=== PATIENT | female | born 1990 | race Caucasian/White ===

== ENCOUNTER 2020-11-14 12:54 | Emergency (ER) | payer OTHER ==
[2020-11-14] MEDS ORDERED: SODIUM CHLORIDE 0.9% 1,000 ML IV STA ×2 (13:15)
[2020-11-14] MEDS ORDERED: KETOROLAC 30 MG/ML VIAL IVP STA (13:15)
[2020-11-14] MEDS ORDERED: LIDOCAINE-MPF 2% 10 ML in SODIUM CHLORIDE 0.9% 50 ML IV STA (13:15)
[2020-11-14 13:18] LABS: BILIRUBIN,URINE NEGATIVE (NEGATIVE); GLUCOSE, URINE (UA) NEGATIVE (NEGATIVE); KETONES,URINE (UA) NEGATIVE (NEGATIVE); LEUKOCYTE ESTERASE, URINE NEGATIVE (NEGATIVE); NITRITE,URINE NEGATIVE (NEGATIVE); OCCULT BLOOD,URINE NEGATIVE (NEGATIVE); PROTEIN,URINE NEGATIVE (NEGATIVE); UROBILINOGEN,URINE 0.2 (NORMAL) E.U./dL (NORMAL)
--- NOTE | 2020-11-14 13:19 | ED Physician Documentation ---
PD HPI ABD PAIN - Stated complaint Stated Complaint: BACK PX - Chief complaint Chief Complaint: Abd Pain - History obtained from History obtained from: Patient - History of Present Illness Timing - onset: Today Timing - duration: Days (1) Timing - details: Abrupt onset Pain level max: 10 Pain level now: 8 Quality: Aching, Pain Location: Other (R flank) Radiation: Right flank Improved by: Other (nothing) Worsened by: Other (nothing) Associated symptoms: No: Fever, Nausea, Vomiting, Hematemesis, Diarrhea, Constipation, Melena, Hematochezia, Dysuria - Additional information Additional information: 30-year-old female complains of right flank pain. Similar to prior history of kidney stones. Started this morning. Took Motrin without relief. Nothing makes it better or worse. She states that she has had some difficulty with urination, though no burning. No fevers. No nausea. No vomiting. Denies any possibility of . Review of Systems Constitutional: denies: Fever, Chills GI: denies: Vomiting, Diarrhea Musculoskeletal: denies: Neck pain, Back pain Neurologic: denies: Headache PD PAST MEDICAL HISTORY - Past Medical History Past Medical History: Yes : Kidney stones Psych: Depression, Anxiety - Present Medications Home Medications: Ambulatory Orders Medication Instructions Recorded Confirmed Escitalopram [Lexapro] 10 mg PO DAILY 11/14/20 11/14/20 Ibuprofen [Motrin] 800 mg PO Q8H PRN #30 tablet 11/14/20 Oxycodone HCl/Acetaminophen 1 - 2 each PO Q6H PRN #14 tablet 11/14/20 [Percocet 5-325 mg Tablet] Promethazine [Phenergan] 25 mg PO Q6H PRN #10 tab 11/14/20 buPROPion [Wellbutrin Xl] 150 mg PO BID 11/14/20 11/14/20 - Allergies Allergies/Adverse Reactions: Allergies Allergy/AdvReac Type Severity Reaction Status Date / Time Penicillins Allergy Unknown Verified 11/14/20 12:59 - Living Situation Living Situation: reports: With family Living Arrangement: reports: At home - Social History Does the pt have substance abuse?: No PD ED PE NORMAL - Vitals Vital signs reviewed: Yes - General General: Alert and oriented X 3, Well developed/nourished, Other (appears uncomfortable) - HEENT HEENT: Moist mucous membranes - Neck Neck: Supple, no meningeal sign - Cardiac Cardiac: RRR, Strong equal pulses - Respiratory Respiratory: No respiratory distress, Clear bilaterally - Abdomen Abdomen: Soft, Non tender, Non distended - Derm Derm: Warm and dry, No rash - Extremities Extremities: No edema - Neuro Neuro: Alert and oriented X 3 - Psych Psych: Normal mood, Normal affect Results - Vitals Vitals: Vital Signs - 24 hr 11/14/20 11/14/20 12:56 13:50 Temperature 36.0 C L Heart Rate 124 H 70 Respiratory 22 16 Rate Blood Pressure 164/100 H 120/89 H O2 Saturation 96 98 Oxygen O2 Source Room air - Labs Labs: Laboratory Tests 11/14/20 11/14/20 11/14/20 13:05 13:15 13:15 WBC 8.8 RBC 5.10 Hgb 14.0 Hct 43.4 MCV 85.1 MCH 27.5 MCHC 32.3 RDW 13.2 Plt Count 324 MPV 9.8 Neut # (Auto) 5.8 Lymph # (Auto) 2.4 [place] # (Auto) 0.5 Eos # (Auto) 0.1 Baso # (Auto) 0.0 Absolute Nucleated RBC 0.00 Nucleated RBC % 0.0 Sodium 138 Potassium 4.0 Chloride 105 Carbon Dioxide 25 Anion Gap 8.0 BUN 9 Creatinine 0.8 Estimated GFR (MDRD) 83 L Glucose 134 H Calcium 9.3 Total Bilirubin 0.7 AST 19 ALT 21 Alkaline Phosphatase 61 Total Protein 7.7 Albumin 4.4 Globulin 3.3 Albumin/Globulin Ratio 1.3 Lipase 22 Urine Color YELLOW Urine Clarity SL. CLOUDY Urine pH 6.0 Ur Specific [place] 1.020 Urine Protein NEGATIVE Urine Glucose (UA) NEGATIVE Urine Ketones NEGATIVE Urine Occult Blood NEGATIVE Urine Nitrite NEGATIVE Urine Bilirubin NEGATIVE Urine Urobilinogen 0.2 (NORMAL) Ur Leukocyte Esterase NEGATIVE Urine RBC 0-5 Urine WBC 0-3 Ur Squamous Epith Cells FEW Squamous Urine Bacteria Few Ur Microscopic Review INDICATED Urine Culture Comments NOT INDICATED Urine HCG, Qual NEGATIVE - Rads (name of study) CT abd/pelvis Radiology: Prelim report reviewed, EMP read contemporaneously, See rad report PD MEDICAL DECISION MAKING - ED course Complexity details: reviewed results, re-evaluated patient, considered differential, d/w patient ED course: 30-year-old female with a right-sided distal ureteral/UVJ stone. Pain well controlled with Toradol and IV lidocaine. Tolerating p.o. without difficulty. No evidence of infection. No fever. We will place her on pain medication for home and have her follow-up with her doctor for further care. Patient counseled regarding signs and symptoms for which I believe and urgent re-evaluation would be necessary. Patient with good understanding of and agreement to plan and is comfortable going home at this time This document was made in part using voice recognition software. While efforts are made to proofread this document, sound alike and grammatical errors may occur. . Suggestion of a 4 mm distal right ureteral/UVJ stone with mild to moderate right-sided hydronephrosis and hydroureter. No left-sided renal stone or hydronephrosis. Normal-appearing urinary bladder. 2. Normal appendix. No bowel obstruction. No abnormal bowel wall thickening. No free fluid or free air. Departure - Departure Disposition: Home, Self Care Clinical Impression: Ureteral calculus, right Condition: Good Instructions: ED Stone Renal W Colic Follow-Up: your,doctor in 1 week [Other] Prescriptions: Ibuprofen [Motrin] 800 mg PO Q8H PRN #30 tablet PRN Reason: PAIN &/OR FEVER Oxycodone HCl/Acetaminophen [Percocet 5-325 mg Tablet] 1 - 2 each PO Q6H PRN #14 tablet PRN Reason: pain Promethazine [Phenergan] 25 mg PO Q6H PRN #10 tab PRN Reason: Nausea / Vomiting Comments: Use the medication as prescribed. Return if you worsen. You do have a 4 mm right sided ureteral stone. This should pass on its own. Return for worsening pain, vomiting or fevers. Follow-up with your doctor for further care. Do not drink alcohol or drive while on narcotic pain medicine. Note that many narcotic pain relievers also contain tylenol/acetaminophen. Ple ase ensure that your total dose of acetaminophen from all sources does not exceed 3 grams (3000mg) per day. You may constipated on this medication, take a stool softener such as "Colace" twice a day while you are on it. Also recommend a vasn-ucl-cyoeolz laxative such as senna or MiraLAX any day that you do not have a bowel movement. If you received narcotic pain medication in the emergency department, do not drive or operate machinery for the next 24 hours.
[2020-11-14 13:21] LABS: CLARITY,URINE SL. CLOUDY (CLEAR); HCG UR QUAL NEGATIVE
[2020-11-14 13:35] LABS: BASOPHILS % (AUTO) 0.3 %; EOSINOPHILS # (AUTO) 0.1 10^3/uL (0.0-0.7); EOSINOPHILS % (AUTO) 1.4 %; LYMPHOCYTES # (AUTO) 2.4 10^3/uL (1.5-3.5); LYMPHOCYTES % (AUTO) 26.8 %; MEAN CORPUSCULAR HEMOGLOBIN 27.5 pg (27.0-31.0); MEAN CORPUSCULAR HGB CONC 32.3 g/dL (32.0-36.0); MEAN CORPUSCULAR VOLUME 85.1 fL (81.0-99.0); MEAN PLATELET VOLUME 9.8 fL (7.9-10.8); MONOCYTES # (AUTO) 0.5 10^3/uL (0.0-1.0); MONOCYTES % (AUTO) 5.1 %; NEUTROPHILS # (AUTO) 5.8 10^3/uL (1.5-6.6); NEUTROPHILS % (AUTO) 65.6 %; PLT - PLATELET COUNT 324 10^3/uL (130-450); RED CELL DISTRIBUTION WIDTH 13.2 % (12.0-15.0); WHITE BLOOD COUNT 8.8 x10^3/uL (4.8-10.8)
[2020-11-14 13:37] LABS: ALBUMIN 4.4 g/dL (3.2-5.5); ALBUMIN/GLOBULIN RATIO 1.3 (1.0-2.2); BILIRUBIN,TOTAL 0.7 mg/dL (0.2-1.0); CALCIUM 9.3 mg/dL (8.5-10.3); CREATININE 0.8 mg/dL (0.4-1.0); TOTAL PROTEIN 7.7 g/dL (6.7-8.2)
[2020-11-14 13:38] LABS: BACTERIA,URINE Few /HPF (None Seen); RBC,URINE 0-5 /HPF (0-5); SQUAMOUS EPITHELIAL CELL,UR FEW Squamous (<= Few)
--- NOTE | 2020-11-14 13:52 | CT Report ---
PROCEDURE: Abdomen/Pelvis WO INDICATIONS: R flank pain, h/o renal stones TECHNIQUE: Noncontrast 5 mm thick sections acquired from the diaphragms to the symphysis. 5 mm coronal and sagi ttal reformats were then performed. For radiation dose reduction, the following was used: automated exposure control, adjustment of mA and/or kV according to patient size. COMPARISON: None. FINDINGS: Image quality: Excellent. ABDOMEN: Lung bases: Lung bases are clear. Heart size is normal. Solid organs: Liver and spleen are normal in size. Gallbladder is within normal limits. Pancreas i s normal in contours. No adrenal nodules. Kidneys are normal in size, without left-sided hydronephrosis or nephrolithiasis. Prominence of right renal collecting system and right ureter is seen. 4 mm calcification is seen in the region of distal right ureter/UVJ. Peritoneum and bowel: Unenhanced bowel loops demonstrate normal wall thickness and caliber. No free fluid or air. Appendix is visualized and is within normal limits. Nodes and vessels: No retroperitoneal or mesenteric adenopathy by size criteria. Aorta and inferior vena cava are normal in caliber. Miscellaneous: No ventral hernias. PELVIS: Genitourinary: Bladder wall thickness is normal. Miscellaneous: No inguinal hernias or adenopathy. Bones: No suspicious bony lesions. No vertebral body compression fractures. IMPRESSION: 1. Suggestion of a 4 mm distal right ureteral/UVJ stone with mild to moderate right-sided hydronephro sis and hydroureter. No left-sided renal stone or hydronephrosis. Normal-appearing urinary bladder. 2. Normal appendix. No bowel obstruction. No abnormal bowel wall thickening. No free fluid or free ai r. Reviewed by: Phoenix Arcos MD on 11/14/2020 1:51 PM PST Approved by: Phoenix Arcos MD on 11/14/2020 1:51 PM PST Station ID: [id number]
[2020-11-14 14:38] VITALS: BP 135/89
== END 2020-11-14 14:51 | disposition home or self-care (01) ==
LOC: ED 12:54
DX: N13.2 Hydronephrosis with renal and ureteral calculous obstruction (principal)
CPT/HCPCS: 36415; 74176; 80053; 81001; 81025; 83690; 85025; 96361; 96365; 96375; 99284; J7040; 81003; 87086

== ENCOUNTER 2021-07-22 08:00 | Outpatient (CLI) | payer OTHER | END 2021-07-22 23:59 | disposition home or self-care (01) | LOC: LAB.N 08:00 | PROVIDERS: ATTEND Family Medicine | DX: R05.9 Cough, unspecified (principal); Z20.822 Contact with and (suspected) exposure to COVID-19 ==

== ENCOUNTER 2023-04-08 12:26 | Emergency (ER) | payer OTHER ==
--- NOTE | 2023-04-08 13:34 | ED Physician Documentation ---
PD HPI NVD - Stated complaint Stated Complaint: FEMALE GI,NASUEA,SWEATING, - Chief complaint Chief Complaint: Abd Pain - History obtained from History obtained from: Patient - History of Present Illness Timing - onset: How many days ago (several) Timing - duration: Days Timing - details: Gradual onset, Still present Associated symptoms: Abdominal pain (The patient has had several days of epigastric to right upper abdominal crampy pain and discomfort. She denies severe pain. Some nausea associated. No vomiting. She states feels similar to pancreatitis episode remotely in the past.) Contributing factors: Other (History of idiopathic pancreatitis. No prior gallbladder problems. She gets occasional symptoms that last for a day or 2. Current symptoms for several days. Denies alcohol use. No change in foods. No change in medicines.). No: Sick contact, Bad food, Recent antibiotics Similar symptoms before: Diagnosis (idiopathic pancreatitis, with last episode 2018.) Recently seen: Not recently seen (She has not been seen by a forgeman helper for 4 years with her last pancreatic flareup being in 2019. She is not on any current medications nor pancreatic supplements. No chronic inflammation of the pancreas.) Review of Systems Constitutional: denies: Fever, Chills Nose: denies: Rhinorrhea / runny nose, Congestion Throat: denies: Sore throat Respiratory: denies: Cough GI: reports: Abdominal Pain, Nausea, Other (some oily stools the past few days.). 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 - Present Medications Home Medications: Ambulatory Orders Medication Instructions Recorded Confirmed Methylphenidate [Ritalin] 10 mg PO DAILY 04/08/23 04/08/23 Venlafaxine ER [Effexor ER] 75 mg PO DAILY 04/08/23 04/08/23 buPROPion [Wellbutrin Xl] 150 mg ORAL DAILY 04/08/23 04/08/23 - Allergies Allergies/Adverse Reactions: Allergies Allergy/AdvReac Type Severity Reaction Status Date / Time Penicillins Allergy Unknown Verified 04/08/23 12:44 - Social History Does the pt smoke?: No Smoking Status: Former smoker Does the pt drink ETOH?: No Does the pt have substance abuse?: Yes Substance Use and Type: Marijuana - Immunizations Immunizations are current?: Yes - POLST Patient has POLST: No PD ED PE NORMAL - Vitals Vital signs reviewed: Yes - General General: Alert and oriented X 3, No acute distress, Well developed/nourished - HEENT HEENT: PERRL (nonicteric) - Cardiac Cardiac: RRR, No murmur - Respiratory Respiratory: Clear bilaterally - Abdomen Abdomen: Normal bowel sounds, Soft, Non distended, No organomegaly, Other (minimally tender epigastric and right of center. Not tender over liver per se and not at gallbladder area. ) Results - Vitals Vitals: Vital Signs - 24 hr 04/08/23 04/08/23 04/08/23 12:46 12:48 14:48 Temperature 36.6 C 36.6 C 36.5 C Heart Rate 93 93 88 Respiratory 18 18 16 Rate Blood Pressure 128/78 128/78 126/80 O2 Saturation 100 100 100 Oxygen O2 Source Room air - Labs Labs: Laboratory Tests 04/08/23 04/08/23 13:52 13:52 WBC 7.9 RBC 4.87 Hgb 13.3 Hct 41.6 MCV 85.4 MCH 27.3 MCHC 32.0 RDW 13.2 Plt Count 282 MPV 9.7 Neut # (Auto) 5.2 Lymph # (Auto) 2.2 [place] # (Auto) 0.4 Eos # (Auto) 0.1 Baso # (Auto) 0.0 Absolute Nucleated RBC 0.00 Nucleated RBC % 0.0 Sodium 139 Potassium 4.1 Chloride 101 Carbon Dioxide 29 Anion Gap 9.0 BUN 8 Creatinine 0.8 Estimated GFR (MDRD) 82 L Glucose 105 H Calcium 8.9 Total Bilirubin 0.6 AST 18 ALT 22 Alkaline Phosphatase 58 Total Protein 7.5 Albumin 4.1 Globulin 3.4 Albumin/Globulin Ratio 1.2 Lipase 27 PD Medical Decision Making - ED course Complexity details: reviewed results (Her white count is normal as are LFTs and lipase. She does not have particular tenderness in the McBurney's area. Previously has not had gallbladder issues or gallstones as of 2019 anyway. It does not seem like a pancreatitis at this time. Other consideration would be gastritis or duodenitis.), considered differential, d/w patient Reviewed Lab Results: Lab tests were done. I considered but did not feel needed imaging such as ultrasound or CT. Departure - Departure Disposition: 01 Home, Self Care Clinical Impression: Abdominal discomfort, epigastric Condition: Stable Record reviewed to determine appropriate education?: Yes Follow-Up: [facility] [Provider Group] Comments: Your blood tests are normal, in particular your white count is normal as are your liver function tests and lipase. It therefore does not seem like an inflammation of your idiopathic pancreatitis. No suggestion of notable infection and lower suspicion for gallbladder etc. At this point consideration would be may be gastritis or duodenitis which is the first part of the small intestine. I would suggest some acid reducing medicine such as famotidine/Pepcid twice daily for the next 7 to 10 days along with some antacid such as Maalox or Mylanta 2 or 3 times daily in particular for before bed as well. Low-fat diet over the next several days to week. See if your symptoms just improve in that timeframe. If consistent symptoms, then follow-up with your primary care. Other considerations for your symptoms could potentially be viral intestinal process short-term or even the development of some malabsorption problems (fats, glutens, etc.). Again follow-up with your primary care and if they feel it gastroenterology referral appropriate if symptoms are ongoing. Otherwise I would anticipate being better more likely over the short-term/week or so. Discharge Date/Time: 04/08/23 14:57
[2023-04-08 14:00] LABS: BASOPHILS % (AUTO) 0.5 %; EOSINOPHILS # (AUTO) 0.1 10^3/uL (0.0-0.7); EOSINOPHILS % (AUTO) 1.5 %; HCT - HEMATOCRIT 41.6 % (37.0-47.0); HGB - HEMOGLOBIN 13.3 g/dL (12.0-16.0); LYMPHOCYTES # (AUTO) 2.2 10^3/uL (1.5-3.5); LYMPHOCYTES % (AUTO) 27.5 %; MEAN CORPUSCULAR HEMOGLOBIN 27.3 pg (27.0-31.0); MEAN CORPUSCULAR VOLUME 85.4 fL (81.0-99.0); MEAN PLATELET VOLUME 9.7 fL (7.9-10.8); MONOCYTES # (AUTO) 0.4 10^3/uL (0.0-1.0); MONOCYTES % (AUTO) 4.9 %; NEUTROPHILS # (AUTO) 5.2 10^3/uL (1.5-6.6); NEUTROPHILS % (AUTO) 65.3 %; PLT - PLATELET COUNT 282 10^3/uL (130-450); RED BLOOD COUNT 4.87 10^6/uL (4.20-5.40); RED CELL DISTRIBUTION WIDTH 13.2 % (12.0-15.0); WHITE BLOOD COUNT 7.9 x10^3/uL (4.8-10.8)
[2023-04-08 14:11] LABS: ALBUMIN 4.1 g/dL (3.2-5.5); ALBUMIN/GLOBULIN RATIO 1.2 (1.0-2.2); BILIRUBIN,TOTAL 0.6 mg/dL (0.2-1.0); CALCIUM 8.9 mg/dL (8.5-10.3); CREATININE 0.8 mg/dL (0.4-1.0); POTASSIUM 4.1 mmol/L (3.5-5.0); TOTAL PROTEIN 7.5 g/dL (6.7-8.2)
[2023-04-08 14:55] VITALS: BP 126/80
== END 2023-04-08 14:57 | disposition home or self-care (01) ==
LOC: ED 12:26
DX: R10.13 Epigastric pain (principal); Z87.891 Personal history of nicotine dependence
CPT/HCPCS: 36415; 80053; 83690; 85025; 99283

== ENCOUNTER 2023-08-09 11:00 | Outpatient (CLI) | payer OTHER ==
[2023-08-09 17:46] LABS: BASOPHILS % (AUTO) 0.4 %; EOSINOPHILS # (AUTO) 0.2 10^3/uL (0.0-0.7); EOSINOPHILS % (AUTO) 2.4 %; HCT - HEMATOCRIT 40.4 % (37.0-47.0); HGB - HEMOGLOBIN 12.8 g/dL (12.0-16.0); LYMPHOCYTES # (AUTO) 2.2 10^3/uL (1.5-3.5); LYMPHOCYTES % (AUTO) 29.4 %; MEAN CORPUSCULAR HEMOGLOBIN 27.1 pg (27.0-31.0); MEAN CORPUSCULAR HGB CONC 31.7 g/dL (32.0-36.0); MEAN CORPUSCULAR VOLUME 85.4 fL (81.0-99.0); MEAN PLATELET VOLUME 10.3 fL (7.9-10.8); MONOCYTES # (AUTO) 0.5 10^3/uL (0.0-1.0); MONOCYTES % (AUTO) 6.9 %; NEUTROPHILS # (AUTO) 4.5 10^3/uL (1.5-6.6); NEUTROPHILS % (AUTO) 60.5 %; PLT - PLATELET COUNT 297 10^3/uL (130-450); RED BLOOD COUNT 4.73 10^6/uL (4.20-5.40); RED CELL DISTRIBUTION WIDTH 13.2 % (12.0-15.0); WHITE BLOOD COUNT 7.4 x10^3/uL (4.8-10.8)
[2023-08-09 18:07] LABS: ALBUMIN 4.1 g/dL (3.2-5.5); BILIRUBIN,TOTAL 0.4 mg/dL (0.2-1.0); CALCIUM 9.1 mg/dL (8.5-10.3); CREATININE 0.5 mg/dL (0.6-1.3); POTASSIUM 4.1 mmol/L (3.5-4.5); TOTAL PROTEIN 6.2 g/dL (6.4-8.9)
== END 2023-08-09 11:15 | disposition home or self-care (01) ==
LOC: LAB.N 11:00
PROVIDERS: ATTEND Physician Assistant Medical
DX: R10.2 Pelvic and perineal pain (principal)
CPT/HCPCS: 36415; 80053; 83690; 85025

== ENCOUNTER 2023-11-26 13:01 | Emergency (ER) | payer OTHER ==
[2023-11-26 13:33] LABS: BILIRUBIN,URINE NEGATIVE (NEGATIVE); GLUCOSE, URINE (UA) NEGATIVE (NEGATIVE); KETONES,URINE (UA) NEGATIVE (NEGATIVE); LEUKOCYTE ESTERASE, URINE NEGATIVE (NEGATIVE); NITRITE,URINE NEGATIVE (NEGATIVE); OCCULT BLOOD,URINE NEGATIVE (NEGATIVE); PROTEIN,URINE NEGATIVE (NEGATIVE); UROBILINOGEN,URINE 0.2 (NORMAL) E.U./dL (NORMAL)
[2023-11-26 13:35] LABS: BASOPHILS % (AUTO) 0.4 %; EOSINOPHILS # (AUTO) 0.2 10^3/uL (0.0-0.7); EOSINOPHILS % (AUTO) 2.5 %; HCT - HEMATOCRIT 41.6 % (37.0-47.0); HGB - HEMOGLOBIN 13.2 g/dL (12.0-16.0); LYMPHOCYTES # (AUTO) 2.7 10^3/uL (1.5-3.5); LYMPHOCYTES % (AUTO) 28.5 %; MEAN CORPUSCULAR HEMOGLOBIN 26.8 pg (27.0-31.0); MEAN CORPUSCULAR HGB CONC 31.7 g/dL (32.0-36.0); MEAN CORPUSCULAR VOLUME 84.4 fL (81.0-99.0); MEAN PLATELET VOLUME 9.3 fL (7.9-10.8); MONOCYTES # (AUTO) 0.4 10^3/uL (0.0-1.0); MONOCYTES % (AUTO) 4.4 %; NEUTROPHILS # (AUTO) 6.1 10^3/uL (1.5-6.6); NEUTROPHILS % (AUTO) 63.6 %; PLT - PLATELET COUNT 319 10^3/uL (130-450); RED BLOOD COUNT 4.93 10^6/uL (4.20-5.40); RED CELL DISTRIBUTION WIDTH 13.2 % (12.0-15.0); WHITE BLOOD COUNT 9.5 x10^3/uL (4.8-10.8)
[2023-11-26 13:37] LABS: CLARITY,URINE CLEAR (CLEAR); HCG UR QUAL NEGATIVE
[2023-11-26 13:54] LABS: ALBUMIN 4.2 g/dL (3.2-5.5); ALBUMIN/GLOBULIN RATIO 1.5 (1.0-2.2); BILIRUBIN,TOTAL 0.4 mg/dL (0.2-1.0); CALCIUM 9.3 mg/dL (8.5-10.3); CREATININE 0.6 mg/dL (0.6-1.3); POTASSIUM 3.7 mmol/L (3.5-4.5)
--- NOTE | 2023-11-26 14:18 | ED Physician Documentation ---
PD HPI ABD PAIN - Stated complaint Stated Complaint: ABD PX/NUASEA - Chief complaint Chief Complaint: Abd Pain - History obtained from History obtained from: Patient - Additional information Additional information: Patient is a 33-year-old female with a history of idiopathic pancreatitis presenting for evaluation of epigastric fullness and nausea after eating that has been ongoing since . No vomiting or diarrhea. Denies that it is really painful but feels more like there is a fullness after eating meals. She has not tried anything for her symptoms. Pain does not radiate anywhere. No fever, cough, chest pain or shortness of air. Denies concerns for . No lower abdominal tenderness. Has had a prior but no other abdominal surgeries. She had a croissant and AT drink from [employer] this morning which again exacerbated her symptoms prompting her to come to the ER today.Denies alcohol or substance use. Review of Systems Constitutional: denies: Fever Cardiac: denies: Chest pain / pressure Respiratory: denies: Dyspnea GI: reports: Abdominal Pain, Nausea. 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 - Present Medications Home Medications: Ambulatory Orders Medication Instructions Recorded Confirmed Methylphenidate [Ritalin] 10 mg PO DAILY 04/08/23 11/26/23 Venlafaxine ER [Effexor ER] 75 mg PO DAILY 04/08/23 11/26/23 buPROPion [Wellbutrin Xl] 150 mg ORAL DAILY 04/08/23 11/26/23 Ondansetron Odt [Zofran] 4 mg TL Q6H PRN #10 tablet 11/26/23 - Allergies Allergies/Adverse Reactions: Allergies Allergy/AdvReac Type Severity Reaction Status Date / Time Penicillins Allergy Unknown Verified 11/26/23 13:13 - Social History Does the pt smoke?: No Smoking Status: Never smoker Does the pt drink ETOH?: No Does the pt have substance abuse?: Yes Substance Use and Type: Marijuana - Immunizations Immunizations are current?: Yes - POLST Patient has POLST: No PD ED PE NORMAL - General General: Alert and oriented X 3, No acute distress, Well developed/nourished - HEENT HEENT: Atraumatic, Moist mucous membranes, Pharynx benign - Neck Neck: Supple, no meningeal sign - Cardiac Cardiac: RRR, Strong equal pulses - Respiratory Respiratory: No respiratory distress, Clear bilaterally - Abdomen Abdomen: Normal bowel sounds, Soft, Non tender, Non distended - Derm Derm: Warm and dry - Neuro Neuro: Normal speech Results - Vitals Vitals: Vital Signs - 24 hr 11/26/23 11/26/23 13:08 14:07 Temperature 36.3 C L 36.3 C L Heart Rate 92 80 Respiratory 16 16 Rate Blood Pressure 151/108 H 145/82 H O2 Saturation 99 96 Oxygen O2 Source Room air - Labs Labs: Laboratory Tests 11/26/23 11/26/23 11/26/23 13:18 13:29 13:29 WBC 9.5 RBC 4.93 Hgb 13.2 Hct 41.6 MCV 84.4 MCH 26.8 L MCHC 31.7 L RDW 13.2 Plt Count 319 MPV 9.3 Neut # (Auto) 6.1 Lymph # (Auto) 2.7 [place] # (Auto) 0.4 Eos # (Auto) 0.2 Baso # (Auto) 0.0 Absolute Nucleated RBC 0.00 Nucleated RBC % 0.0 Sodium 137 Potassium 3.7 Chloride 102 Carbon Dioxide 29 Anion Gap 6.0 BUN 7 Creatinine 0.6 Estimated GFR (MDRD) 114 Glucose 128 H Calcium 9.3 Total Bilirubin 0.4 AST 12 ALT 14 Alkaline Phosphatase 67 Total Protein 7.0 Albumin 4.2 Globulin 2.8 Albumin/Globulin Ratio 1.5 Lipase 27 Urine Color YELLOW Urine Clarity CLEAR Urine pH 7.0 Ur Specific [place] <=1.005 Urine Protein NEGATIVE Urine Glucose (UA) NEGATIVE Urine Ketones NEGATIVE Urine Occult Blood NEGATIVE Urine Nitrite NEGATIVE Urine Bilirubin NEGATIVE Urine Urobilinogen 0.2 (NORMAL) Ur Leukocyte Esterase NEGATIVE Ur Microscopic Review NOT INDICATED Urine Culture Comments NOT INDICATED Urine HCG, Qual NEGATIVE PD Medical Decision Making - ED course Complexity details: reviewed results, d/w patient ED course: Patient is a 33-year-old female with a history of idiopathic pancreatitis presenting for evaluation of upper abdominal pain that she describes as fullness for the last few days with associated nausea. Vital signs are stable. Abdominal exam is benign. Patient declines any pain or nausea medications here. Labs including CBC, chemistries, urinalysis and hCG were obtained and reviewed and without any significant abnormalities. Patient is resting comfortably here. At this time I do not see indication for emergent imaging. Discussed trial of bland diet along with antinausea medication which she is agreeable to. Patient counseled on concerning symptoms to return for. Departure - Departure Disposition: Home, Self Care Clinical Impression: Epigastric abdominal pain Condition: Stable Instructions: ED Epigastric Pain [facility] Prescriptions: Ondansetron Odt [Zofran] 4 mg TL Q6H PRN #10 tablet PRN Reason: Nausea / Vomiting Comments: Your lab testing today is reassuring.Would recommend a trial of a bland diet and close follow-up with your primary care provider. If sent a prescription for antinausea medication to the [facility] in [place]. Return to the ER with any worsening symptoms. Forms: PCP List
[2023-11-26 15:00] VITALS: BP 141/85; O2SAT 100
== END 2023-11-26 14:56 | disposition home or self-care (01) ==
LOC: ED 13:01
DX: R10.13 Epigastric pain (principal); Z87.19 Personal history of other diseases of the digestive system
CPT/HCPCS: 36415; 80053; 81001; 81003; 81025; 83690; 85025; 87086; 99283; 99284